=== PATIENT | female | born 1950 | race Caucasian/White ===

== ENCOUNTER → 2018-01-01 08:26 | Outpatient (CLI) | payer BC, SELFPAY ==
[2018-01-01 10:42] LABS: Anion Gap 7 (5-15); BUN 15 mg/dL (7-18); BUN/Creat Ratio 15.5 RATIO (10-20); Chloride 106 mmol/L (98-107); Creatinine, Serum 0.96 mg/dL (0.55-1.02); EST Glomerular Filtration Rate 61 mL/min (>60); Est Glom Filt Rate - Afr Amer 74 mL/min (>60); Glucose 152 mg/dL (74-106); Potassium 4.3 mmol/L (3.5-5.1); Sodium Level 141 mmol/L (136-145); Uric Acid 9.3 mg/dL (2.6-6.0)
== END ==
PROVIDERS: Family Provider Internal Medicine; PCP Internal Medicine; Visit Provider Internal Medicine
DX: E79.0 Hyperuricemia without signs of inflammatory arthritis and tophaceous disease (principal); I12.9 Hypertensive chronic kidney disease with stage 1 through stage 4 chronic kidney disease, or unspecified chronic kidney disease; N18.9 Chronic kidney disease, unspecified; E78.00 Pure hypercholesterolemia, unspecified
CPT/HCPCS: 36415; 80048; 84550

== ENCOUNTER → 2018-04-09 07:32 | Outpatient (CLI) | payer BC, SELFPAY ==
[2018-04-09 10:13] LABS: Absolute Lymphocyte Count 2.52 X10^3/ul (0.83-4.51); Absolute Neutrophil Count 2.5 X10^3/uL (2.0-7.7); Basophil# 0.05 X10^3/uL; Basophil% 0.8 % (0-1); Eosinophil# 0.49 X10^3/uL; Eosinophils% 7.9 % (0-5); Hematocrit 37.3 % (37-47); Hemoglobin 12.4 g/dl (12.0-15.0); Lymphocyte # 2.52 X10^3/ul (4.0); Lymphocyte % 40.5 % (19-41); Mean Corp Hgb Conc 33.2 g/gl (32-36); Mean Corpuscular Hgb 30.7 pg (27.0-32.0); Mean Corpuscular Volume 92.3 fL (81-99); Monocyte# 0.69 X10^3/uL; Monocyte% 11.1 % (0-10); Neutrophil # 2.45 X10^3/uL (2.7-7.7); Neutrophil % 39.4 % (47-70); Platelet Count 280 K/mm3 (150-450); RBC Distribution Width CV 13.2 % (11.6-14.6); RBC Distribution Width SD 43.4 fl (35.1-43.9); Red Blood Count 4.04 M/mm3 (4.2-5.4); White Blood Count 6.2 K/mm3 (4.4-11.0)
[2018-04-09 10:21] LABS: POSITIVE COUNT NO; POSITIVE DIFFERENTIAL NO; POSITIVE MORPHOLOGY NO
[2018-04-09 10:31] LABS: ALB/GLOB Ratio 1.2 RATIO (0.9-2.4); AST(SGOT) 22 U/L (15-37); Alanine Aminotransfer ALT/SGPT 28 U/L (13-56); Albumin, Serum 3.9 g/dL (3.2-5.0); Alkaline Phosphatase 72 U/L (45-117); Anion Gap 11 (5-15); BUN 21 mg/dL (7-18); BUN/Creat Ratio 18.9 RATIO (10-20); Calcium,Total 9.1 mg/dL (8.5-10.1); Chloride 104 mmol/L (98-107); Creatinine, Serum 1.11 mg/dL (0.55-1.02); EST Glomerular Filtration Rate 52 mL/min (>60); Est Glom Filt Rate - Afr Amer 63 mL/min (>60); Globulin 3.3 g/dL (2.2-4.2); Glucose 130 mg/dL (74-106); Potassium 4.4 mmol/L (3.5-5.1); Protein, Total 7.2 g/dL (6.4-8.2); Sodium Level 143 mmol/L (136-145); Uric Acid 9.8 mg/dL (2.6-6.0)
[2018-04-12 12:07] LABS: CHOLESTEROL TOTAL 186 mg/dL (100-199); HDL-C 47 mg/dL (>39); HDL-P TOTAL 31.7 umol/L (>=30.5); SMALL LDL-P 741 nmol/L (<=527); TRIGLYCERIDES 292 mg/dL (0-149)
[2018-04-12 16:23] LABS: LDL SIZE 20.3 nm (>20.5); LDL-C 81 mg/dL (0-99); LDL-P 1279 nmol/L (<1000); LP-IR SCORE ** 77 (<=45)
== END ==
PROVIDERS: Family Provider Internal Medicine; PCP Internal Medicine; Visit Provider Internal Medicine
DX: I12.9 Hypertensive chronic kidney disease with stage 1 through stage 4 chronic kidney disease, or unspecified chronic kidney disease (principal); N18.9 Chronic kidney disease, unspecified; E78.00 Pure hypercholesterolemia, unspecified; E79.0 Hyperuricemia without signs of inflammatory arthritis and tophaceous disease
CPT/HCPCS: 36415; 80053; 80061; 83695; 83704; 84550; 85025

== ENCOUNTER → 2018-07-09 12:20 | Outpatient (CLI) | payer BC, SELFPAY ==
--- NOTE | 2018-07-09 12:22 | BI_ITS ---
MAMMOGRAPHY - BILATERAL SCREENING REASON FOR EXAM: Female, 68 years old. Routine annual screening examination. PERTINENT HISTORY: Non-contributory. TECHNIQUE: Digital bilateral breast jami (3D mammographic acquisition) in the CC and MLO projections. 2-D mediolateral oblique (MLO) and craniocaudad (CC) views of both breasts were obtained. CAD: Full Field Digital Mammography with Computer Added Detection was performed. COMPARISON: Comparison is made with prior study dated July 07, 2017 and June 23, 2016. FINDINGS: Breast Composition: There are scattered areas of fibroglandular density. There are no dominant masses or suspicious calcifications. Stable benign-appearing bilateral axillary lymph nodes. No other significant abnormalities are identified. There has been no significant change since the prior study. BI/SCREENING MAMM (CAD), BILAT IMPRESSION: Stable bilateral screening mammogram. Yearly follow-up mammogram recommended. (A) ASSESSMENT CATEGORY: BIRADS Category 2: Benign. A letter regarding these results will be sent to the patient by the facility within 30 days. Approximately 10% of breast cancers are not detected by mammography. A normal mammogram should not delay biopsy of a clinically suspicious abnormality. [id number] Electronically Signed: Landen Sepulveda MD at 13:55 EDT Tel [phone], Service support ,
== END ==
PROVIDERS: Family Provider Internal Medicine; PCP Internal Medicine; Referring Provider Internal Medicine; Visit Provider Internal Medicine
DX: Z12.31 Encounter for screening mammogram for malignant neoplasm of breast (principal)
CPT/HCPCS: 77063; 77067

== ENCOUNTER → 2019-04-11 | Outpatient (CLI) | payer BC, SELFPAY ==
[2019-03-25 14:48] VITALS: BMI 42.1
--- NOTE | 2019-04-11 12:29 | ECHOD_ITS ---
Reason For Study: Murmur Procedure This was a 2D Doppler, Color Flow transthoracic echocardiogram. The exam was of adequate technical quality. Exam performed in department. Left Ventricle Normal LV size. Mild concentric left ventricular hypertrophy. Left ventricular systolic function is normal. The estimated ejection fraction is 60 %. Post operative septal motion. There is evidence of diastolic dysfunction. No regional wall motion abnormalities noted. Right Ventricle Normal RV size. Normal systolic function. Atria The left atrium is moderately enlarged. Normal right atrium. No doppler evidence for ASD. Mitral Valve There is mild mitral annular calcification. Extension of the mitral annular calcification onto the posterior mitral valve leaflet. Trivial mitral valve insufficiency. Tricuspid Valve Normal tricuspid valve. Mild tricuspid valve insufficiency. Right ventricular systolic pressure estimated to be 27 mmHg. Aortic Valve Trisinus/trileaflet aortic valve. Mild focal aortic valve calcification. Pulmonic Valve The pulmonic valve is not well visualized. Great Vessels Normal sized aortic root. Pericardium/Pleural No pericardial effusion. MMode/2D Measurements & Calculations LVIDd: 4.5 cm IVSd: 1.5 cm LVOT diam: 2.0 cm LVIDs: 2.4 cm LVPWd: 1.3 cm LVOT area: 3.1 cm2 FS: 47.5 % LA dimension: 4.7 cm LAV(MOD-bp): 71.0 ml LA A4 area: 25.1 cm2 LAV(MOD-bp) Indexed: 36.2 ml/m2 LAV(MOD-sp2): 54.1 ml LAV(MOD-sp4): 92.5 ml RA A4 area: 17.2 cm2 Time Measurements MV dec time: 0.23 sec Doppler Measurements & Calculations MV E max ba: 90.0 cm/sec Lat Peak E' Ba: 8.8 cm/sec Med Peak E' Ba: 4.9 cm/sec MV A max ba: 110.7 cm/sec E/E' lat: 10.2 E/E' med: 18.4 MV E/A: 0.81 MV V2 max: 127.1 cm/sec MV P1/2t max ba: 98.2 cm/sec Ao V2 max: 240.8 cm/sec MV max P.5 mmHg MV P1/2t: 74.4 msec Ao max P.2 mmHg MV V2 mean: 67.6 cm/sec MV dec slope: 386.7 cm/sec2 Ao V2 mean: 151.0 cm/sec MV mean P.1 mmHg Ao mean P.5 mmHg MV V2 VTI: 34.7 cm MVA(P1/2t): 3.0 cm2 Ao V2 VTI: 52.4 cm MVA(VTI): 2.3 cm2 JORGE(I,D): 1.5 cm2 JORGE(V,D): 1.4 cm2 LV V1 max: 112.2 cm/sec SV(LVOT): 80.7 ml PA V2 max: 99.2 cm/sec LV V1 max P.0 mmHg LV V1 mean P.5 mmHg LV V1 mean: 73.4 cm/sec LV V1 VTI: 26.2 cm TR max ba: 247.0 cm/sec TR max P.4 mmHg Interpretation Summary Left ventricular systolic function is normal. The estimated ejection fraction is 60 %. Post operative septal motion. Mild concentric left ventricular hypertrophy. The left atrium is moderately enlarged. There is mild mitral annular calcification. Extension of the mitral annular calcification onto the posterior mitral valve leaflet. Trivial mitral valve insufficiency. Mild tricuspid valve insufficiency. Mild focal aortic valve calcification. Right ventricular systolic pressure estimated to be 27 mmHg. There is evidence of diastolic dysfunction. Ordering Physician: Juan Pierre Referring Physician: Fiona Ivan M.D. Performed By: Suleman Barclay RCS
== END | disposition home or self-care (01) ==
LOC: CVS 12:27
PROVIDERS: Family Provider Internal Medicine; PCP Internal Medicine; Referring Provider Internal Medicine Cardiovascular Disease; Visit Provider Internal Medicine Cardiovascular Disease
DX: I25.10 Atherosclerotic heart disease of native coronary artery without angina pectoris (principal); Z98.61 Coronary angioplasty status; Z95.1 Presence of aortocoronary bypass graft; E78.5 Hyperlipidemia, unspecified; I10 Essential (primary) hypertension; I35.9 Nonrheumatic aortic valve disorder, unspecified; R01.1 Cardiac murmur, unspecified
CPT/HCPCS: 93306

== ENCOUNTER → 2019-07-11 14:18 | Outpatient (CLI) | payer BC, SELFPAY ==
[2019-03-25 14:48] VITALS: BMI 42.1
--- NOTE | 2019-07-11 14:20 | BI_ITS ---
MAMMOGRAPHY - BILATERAL SCREENING REASON FOR EXAM: Female, 69 years old. Routine annual screening examination. PERTINENT HISTORY: Non-contributory. TECHNIQUE: Digital bilateral breast aquiles (3D mammographic acquisition) in the CC and MLO projections. 2-D mediolateral oblique (MLO) and craniocaudad (CC) views of both breasts were obtained. CAD: Full Field Digital Mammography with Computer Added Detection was performed. COMPARISON: Comparison is made with prior examination dated July 09, 2018 and July 07, 2017. FINDINGS: Breast Composition: There are scattered areas of fibroglandular density. There is a 1.1 cm x 1.3 cm well-defined nodule in the mid deep portion of the right breast. Correlation with ultrasound is recommended. Stable appearance of the benign-appearing bilateral axillary lymph nodes. No other significant abnormalities are identified. BI/SCREEN MAMM (CAD) W/AQUILES BILAT IMPRESSION: Well-defined nodular density in the right breast as described. Correlation with ultrasound is recommended. ASSESSMENT CATEGORY: BIRADS Category 0: Incomplete. Need additional imaging evaluation. A letter regarding these results will be sent to the patient by the facility within 30 days. Approximately 10% of breast cancers are not detected by mammography. A normal mammogram should not delay biopsy of a clinically suspicious abnormality. [id number] Electronically Signed: Landen Sepulveda, at 15:49 EDT , Service support ,
--- NOTE | 2019-07-11 14:28 | BD_ITS ---
STUDY: DUAL ENERGY X-RAY ABSORPTIOMETRY / DXA REASON FOR EXAM: Female, 69 years old. The patient is postmenopausal. Loss of height. TECHNIQUE: Bone Mineral Density (BMD) measurements of lumbar spine and bilateral hips were obtained. COMPARISON: Comparison is made with prior examination dated April 04, 2017. FINDINGS: Lumbar Spine (L1-L4): g/cm2 (1.154) / T-score (-0.1) / Z-score (1.6) Findings are suggestive of normal bone density with a low fracture risk. Left Femur Total: g/cm2 (1.033) / T-score (0.2) / Z-score (1.7) Left Femoral Neck: g/cm2 (0.785) / T-score (-1.8) / Z-score (-0.1) Right Femur Total: g/cm2 (1.037) / T-score (0.2) / Z-score (1.8) Right Femoral Neck: g/cm2 (0.798) / T-score (-1.7) / Z-score (0.0) The T-Scores on the most recent prior examination were: Lumbar Spine (L1-L4): There has been worsening of bone density since the previous examination. Left Femur Total: which represents a worsening of 1.8%. Right Femur Total: which represents no significant change. . BD/Dexa Bone Density Study IMPRESSION: The patient is considered osteopenic as outlined below according to World Nish Organization (WHO) criteria with a moderate fracture risk. There has been worsening of bone density since the previous examination. Reference Information: The T-score is the number of standard deviations above or below the standard which is normal for young adults at their peak bone mineral density. The World Health Organization (WHO) interprets the T-scores as follows: Above -1 Normal bone density Between -1 and -2.5 Osteopenia Equal to / or below -2.5 Osteoporosis As a practical clinical guideline, osteopenia may be graded as follows: Mild -1 through -1.5 Moderate -1.6 through -2.0 Severe -2.1 through -2.4 The Z-score is the number of standard deviations above or below age-matched controls. A Z-score of less than -1.5 would be considered abnormal. References: 1. NIH Osteoporosis and Related Bone Diseases http://www.osteo.org 2. International Society for Clinical Densitometry http://www.iscd.org 3. National Osteoporosis Foundation http://www.nof.org Electronically Signed: Landen Sepulveda, at 12:52 EDT , Service support ,
== END ==
PROVIDERS: Family Provider Internal Medicine; PCP Internal Medicine; Referring Provider Internal Medicine; Visit Provider Internal Medicine
DX: Z12.31 Encounter for screening mammogram for malignant neoplasm of breast (principal); M81.0 Age-related osteoporosis without current pathological fracture
CPT/HCPCS: 77063; 77067; 77080

== ENCOUNTER → 2019-07-15 10:47 | Outpatient (CLI) | payer BC, SELFPAY ==
[2019-03-25 14:48] VITALS: BMI 42.1
--- NOTE | 2019-07-15 10:49 | US_ITS ---
STUDY: ULTRASOUND BREAST - RIGHT REASON FOR EXAM: Female, 69 years old. Abnormal screening mammogram. TECHNIQUE: Axial and longitudinal images of the RIGHT breast were performed with a high resolution ultrasound transducer. COMPARISON: Comparison is made with prior mammogram dated July 11, 2019. FINDINGS: RIGHT Breast: The mammographic abnormality corresponds to a 1.2 cm x 0.7 cm x 0.6 cm septated cyst at the 5:00 position of the breast at 2 cm from the nipple. US/Breast Limited Unilateral IMPRESSION: The mammographic abnormality corresponds to a 1.2 cm x 0.7 cm x 0.6 cm septated cyst. ASSESSMENT CATEGORY: BIRADS Category 2: Benign. A letter regarding these results will be sent to the patient by the facility within 30 days. Electronically Signed: Landen Sepulveda, at 10:31 EST , Service support ,
== END ==
PROVIDERS: Family Provider Internal Medicine; PCP Internal Medicine; Referring Provider Internal Medicine; Visit Provider Internal Medicine
DX: N63.10 Unspecified lump in the right breast, unspecified quadrant (principal)
CPT/HCPCS: 76642

== ENCOUNTER → 2020-07-22 | Outpatient (CLI) | payer BC, SELFPAY ==
[2020-05-29 14:22] VITALS: BMI 41.3
--- NOTE | 2020-07-22 15:32 | BI_ITS ---
MAMMOGRAPHY - BILATERAL SCREENING REASON FOR EXAM: Female, 70 years old. Routine annual screening examination. PERTINENT HISTORY: Non-contributory. TECHNIQUE: Digital bilateral breast aquiles (3D mammographic acquisition) in the CC and MLO projections. 2-D mediolateral oblique (MLO) and craniocaudad (CC) views of both breasts were obtained. CAD: Full Field Digital Mammography with Computer Added Detection was performed. COMPARISON: Comparison is made with prior study dated 07/11/2019 and 07/09/2018. FINDINGS: Breast Composition: There are scattered areas of fibroglandular density. There are no dominant masses or suspicious calcifications. Stable 1.2 cm x 0.7 cm nodular density in the mid deep portion of the right breast. This was demonstrated to be a small cyst on prior sonogram. No other significant abnormalities are identified. There has been no significant change since the prior study. BI/SCREEN MAMM (CAD) W/AQUILES BILAT IMPRESSION: Stable bilateral screening mammogram. Yearly follow-up mammogram recommended. (A) ASSESSMENT CATEGORY: BIRADS Category 2: Benign. A letter regarding these results will be sent to the patient by the facility within 30 days. Approximately 10% of breast cancers are not detected by mammography. A normal mammogram should not delay biopsy of a clinically suspicious abnormality. [id number] Electronically Signed: Landen Sepulveda, at 8:22 EST , Service support ,
== END | disposition home or self-care (01) ==
LOC: OPBI 15:31
PROVIDERS: PCP Internal Medicine; Referring Provider Internal Medicine; Visit Provider Internal Medicine
DX: Z12.31 Encounter for screening mammogram for malignant neoplasm of breast (principal)
CPT/HCPCS: 77063; 77067

== ENCOUNTER → 2021-07-29 10:33 | Outpatient (CLI) | payer BC, SELFPAY ==
--- NOTE | 2021-07-29 10:36 | BI_ITS ---
MAMMOGRAPHY - BILATERAL SCREENING REASON FOR EXAM: Female, 71 years old. Routine annual screening examination. PERTINENT HISTORY: Non-contributory. TECHNIQUE: Digital bilateral breast aquiles (3D mammographic acquisition) in the CC and MLO projections. 2-D mediolateral oblique (MLO) and craniocaudad (CC) views of both breasts were obtained. CAD: Full Field Digital Mammography with Computer Added Detection was performed. COMPARISON: Comparison is made with prior study dated 07/22/2020 and 07/11/2019. FINDINGS: Breast Composition: There are scattered areas of fibroglandular density. There are no dominant masses or suspicious calcifications. Stable 1.2 cm x 0.7 cm nodular density in the mid deep portion of the right breast. This was demonstrated to be a small cyst on prior sonogram. Stable scattered bilateral calcifications. Stable bilateral benign appearing axillary lymph liz. No other significant abnormalities are identified. There has been no significant change since the prior study. BI/SCRN MAMM (CAD)W/AQUILES BILAT IMPRESSION: Stable bilateral screening mammogram. Yearly follow-up mammogram recommended. (A) ASSESSMENT CATEGORY: BIRADS Category 2: Benign. A letter regarding these results will be sent to the patient by the facility within 30 days. Approximately 10% of breast cancers are not detected by mammography. A normal mammogram should not delay biopsy of a clinically suspicious abnormality. [id number] Electronically Signed: Landen Sepulveda MD at 13:22 EST , Service support ,
--- NOTE | 2021-07-29 11:04 | BD_ITS ---
STUDY: DUAL ENERGY X-RAY ABSORPTIOMETRY / DXA REASON FOR EXAM: Female, 71 years old. 733.90OsteopeniaBONE DENSITY REASON FOR EXAM TECHNIQUE: Bone Mineral Density (BMD) measurements of lumbar spine and bilateral hips were obtained. COMPARISON: Comparison is made with prior study 07/11/2019. FINDINGS: Lumbar Spine (L1-L4): g/cm2 (1.122) / T-score (0.7) / Z-score (3.0) Findings are suggestive of normal bone density with a low fracture risk. Left Femur Total: g/cm2 (0.983) / T-score (0.3) / Z-score (2.0) Left Femoral Neck: g/cm2 (0.702) / T-score (-1.3) / Z-score (0.7) Right Femur Total: g/cm2 (0.984) / T-score (0.3) / Z-score (2.0) Right Femoral Neck: g/cm2 (0.645) / T-score (-1.8) / Z-score (0.2) The T-Scores on the most recent prior examination were: Lumbar Spine (L1-L4): There has been improvement of bone density since the previous examination. Left Femur Total: which represents an improvement of 1.8%. Right Femur Total: which represents an improvement of 1.5%. BD/Dexa Bone Density Study IMPRESSION: The patient is considered osteopenic as outlined below according to World Nish Organization (WHO) criteria with a moderate fracture risk. There has been improvement of bone density since the previous examination. Reference Information: The T-score is the number of standard deviations above or below the standard which is normal for young adults at their peak bone mineral density. The World Health Organization (WHO) interprets the T-scores as follows: Above -1 Normal bone density Between -1 and -2.5 Osteopenia Equal to / or below -2.5 Osteoporosis As a practical clinical guideline, osteopenia may be graded as follows: Mild -1 through -1.5 Moderate -1.6 through -2.0 Severe -2.1 through -2.4 The Z-score is the number of standard deviations above or below age-matched controls. A Z-score of less than -1.5 would be considered abnormal. References: 1. NIH Osteoporosis and Related Bone Diseases www osteo.org 2. International Society for Clinical Densitometry www iscd.org 3. National Osteoporosis Foundation www nof.org Electronically Signed: Landen Sepulveda MD at 14:23 EST , Service support ,
== END ==
PROVIDERS: PCP Internal Medicine; Referring Provider Internal Medicine; Visit Provider Internal Medicine
DX: Z12.31 Encounter for screening mammogram for malignant neoplasm of breast (principal); M85.80 Other specified disorders of bone density and structure, unspecified site
CPT/HCPCS: 77063; 77067; 77080

== ENCOUNTER 2021-10-13 11:16 | Outpatient (CLI) | payer BC, SELFPAY ==
--- NOTE | 2021-10-13 11:19 | US_ITS ---
STUDY: ULTRASOUND OF THE FEMALE PELVIS - COMPLETE REASON FOR EXAM: Female, 71 years old. 2 week history of right lower quadrant pain. LMP: Patient is postmenopausal. TECHNIQUE: Transabdominal and Transvaginal TECHNICAL QUALITY: Adequate. COMPARISON: None. FINDINGS: The uterus is retroflexed and is in a midline position. The uterus measures 7.7 cm x 4.9 cm x 2.9 cm. Normal uterine cervix. The endometrium is thickened and measures 8 mm in thickness, and is fluid distended. I suspect a 3 mm polyp in the cervical region of the endometrium. There is a 2.47 x 1.8 cm x 1.8 cm uterine fibroid. I.U.D. - The patient does not have an I.U.D. The right ovary is visualized. The right ovary measures 2.3 cm x 1.7 cm x 0.9 cm. There is no right ovarian cyst or ovarian mass. There is no visualized right adnexal mass or complex lesion. There is normal arterial and normal venous vascularity. The left ovary is visualized. The left ovary measures 2.2 cm x 2 cm x 1.2 cm. There is no left ovarian cyst or ovarian mass. There is no visualized left adnexal mass or complex lesion. There is normal arterial and normal venous vascularity. There is no fluid in the cul-de-sac. The pre void volume of the bladder was 677 ml. US/Pelvic (Non ) IMPRESSION: 2.4 cm x 1.8 cm x 1.8 cm uterine fibroid. Fluid distended endometrium with findings suggestive of a 3 mm endometrial polyp. Electronically Signed: Landen Sepulveda MD at 14:52 EST ,
--- NOTE | 2021-10-13 11:20 | US_ITS ---
STUDY: ULTRASOUND OF THE FEMALE PELVIS - COMPLETE REASON FOR EXAM: Female, 71 years old. 2 week history of right lower quadrant pain. LMP: Patient is postmenopausal. TECHNIQUE: Transabdominal and Transvaginal TECHNICAL QUALITY: Adequate. COMPARISON: None. FINDINGS: The uterus is retroflexed and is in a midline position. The uterus measures 7.7 cm x 4.9 cm x 2.9 cm. Normal uterine cervix. The endometrium is thickened and measures 8 mm in thickness, and is fluid distended. I suspect a 3 mm polyp in the cervical region of the endometrium. There is a 2.47 x 1.8 cm x 1.8 cm uterine fibroid. I.U.D. - The patient does not have an I.U.D. The right ovary is visualized. The right ovary measures 2.3 cm x 1.7 cm x 0.9 cm. There is no right ovarian cyst or ovarian mass. There is no visualized right adnexal mass or complex lesion. There is normal arterial and normal venous vascularity. The left ovary is visualized. The left ovary measures 2.2 cm x 2 cm x 1.2 cm. There is no left ovarian cyst or ovarian mass. There is no visualized left adnexal mass or complex lesion. There is normal arterial and normal venous vascularity. There is no fluid in the cul-de-sac. The pre void volume of the bladder was 677 ml. US/Transvaginal Non- IMPRESSION: 2.4 cm x 1.8 cm x 1.8 cm uterine fibroid. Fluid distended endometrium with findings suggestive of a 3 mm endometrial polyp. Electronically Signed: Landen Sepulveda MD at 14:52 EST ,
== END 2021-10-13 23:59 | disposition short-term general hospital (02) ==
PROVIDERS: PCP Internal Medicine; Referring Provider Internal Medicine; Visit Provider Internal Medicine
DX: R10.31 Right lower quadrant pain (principal); Z78.0 Asymptomatic menopausal state
CPT/HCPCS: 76830; 76856; 93976

== ENCOUNTER 2021-10-21 14:26 | Outpatient (CLI) | payer BC, SELFPAY ==
[2021-10-21 14:31] LABS: Bacteria 0 SEEN /hpf (None Seen); Mucous, Urine 0 SEEN /hpf (<or=2+); Red Blood Cells-Urine 0 SEEN /hpf (0-5); Squamous Epithelial Cells - UA 0 SEEN /hpf (5-10); White Blood Cells 0 SEEN /hpf (0-5)
[2021-10-21 17:40] LABS: Absolute Lymphocyte Count 3.25 X10^3/uL (0.83-4.51); Absolute Neutrophil Count 3.3 X10^3/uL (2.0-7.7); Basophil% 1.2 % (0-1); Eosinophil# 0.54 X10^3/uL; Eosinophils% 6.5 % (0-5); Hematocrit 41.1 % (37-47); Hemoglobin 13.5 g/dL (12.0-15.0); Lymphocyte # 3.25 X10^3/ul (0.83-4.51); Lymphocyte % 39.2 % (19-41); Mean Corp Hgb Conc 32.8 g/dL (32-36); Mean Corpuscular Hgb 31.8 pg (27.0-32.0); Mean Corpuscular Volume 96.9 fL (81-99); Mean Platelet Vol. 9.6 fl (6.2-12.0); Monocyte# 1.08 X10^3/uL; NRBC Flagged by Analyzer 0 % (0-5); Neutrophil # 3.27 X10^3/uL (2.7-7.7); Neutrophil % 39.5 % (47-70); Platelet Count 288 K/mm3 (150-450); RBC Distribution Width CV 13.2 % (11.6-14.6); RBC Distribution Width SD 47.3 fl (35.1-43.9); Red Blood Count 4.24 M/mm3 (4.2-5.4); White Blood Count 8.3 K/mm3 (4.4-11.0)
[2021-10-21 17:43] LABS: Color, Urine Yellow (Yellow); Glucose, Dipstick 1000 mg/dl (Normal); Ketone-Dipstick Negative (Negative); Leukocyte Esterase-Dipstick Negative /ul (Negative); Nitrite-Dipstick Negative (Negative); Occult Blood-Urine Negative /ul (Negative); Protein-Dipstick 15 mg/dl (Negative); Urine Bilirubin Dipstick Negative (Negative); Urine Clarity Clear (Clear); Urine Urobilinogen Normal (Normal); Urine pH 6.5 (5.0 - 8.0)
[2021-10-21 17:55] LABS: ALB/GLOB Ratio 1.3 RATIO (0.9-2.4); AST(SGOT) 21 U/L (15-37); Alanine Aminotransfer ALT/SGPT 32 U/L (13-56); Albumin, Serum 4.3 g/dL (3.2-5.0); Alkaline Phosphatase 69 U/L (45-117); Anion Gap 7 (5-15); BUN 24 mg/dL (7-18); BUN/Creat Ratio 22.2 RATIO (10-20); Calcium,Total 9.8 mg/dL (8.5-10.1); Chloride 105 mmol/L (98-107); Creatinine, Serum 1.08 mg/dL (0.55-1.02); EST Glomerular Filtration Rate 53 mL/min (>60); Est Glom Filt Rate - Afr Amer 64 mL/min (>60); Globulin 3.3 g/dL (2.2-4.2); Glucose 143 mg/dL (74-106); Potassium 4.2 mmol/L (3.5-5.1); Protein, Total 7.6 g/dL (6.4-8.2); Sodium Level 139 mmol/L (136-145)
== END 2021-10-21 23:59 | disposition home or self-care (01) ==
LOC: MTLAB 14:27
PROVIDERS: PCP Internal Medicine; Referring Provider Internal Medicine; Visit Provider Internal Medicine
DX: R10.31 Right lower quadrant pain (principal)
CPT/HCPCS: 36415; 80053; 81001; 85025

== ENCOUNTER 2021-10-26 17:27 | Outpatient (CLI) | payer BC, SELFPAY ==
--- NOTE | 2021-10-26 15:30 | EMB_PTH ---
PATIENT: ANNABELLE PEREZ LOC: [facility] U#:[id number] AGE/SX: 71/F ROOM: RE10/26/[address]: Dr. Joanna Moreno DO : 1950 BED: DIS: 10/26/2021 SPEC #: [id number] RECD: 10/26/21 16:12 STATUS: LAURA SANTHOSH #: [id number] LEWIS: 10/26/21 15:[address]: Joanna Moreno DEPT: SURGICAL PATHOLOGY RECD BY: Charlotte Stroud ENTERED: 10/27/21 11:54 SP TYPE: ENDOM BX/C OTHR DR: Dr. Fiona Ivan MD Tissues: Endometrium, NOS Procedures: Surgery Specimen Level IV HEADER OPERATION: Endometrial biopsy PRE-OP DIAGNOSIS: Uterine mass TISSUE SUBMITTED: Endometrial lining MICROSCOPIC DIAGNOSIS Endometrial biopsy: Scant strips of benign endometrial epithelium, consistent with atrophic endometrium. Scant fragments of benign ecto- and endocervical epithelium and mucous. See comment. SJ:marck 10/28/2021 COMMENT The specimen predominantly consists of mucoid tissue. Clinical correlation and appropriate follow up are necessary. MICROSCOPIC DESCRIPTION Slides are reviewed. GROSS DESCRIPTION Received is one container labeled with the patient's name and not further designated. The specimen consists of light arizmendi mucoid material aggregating to 2 x 2 x 0.2 cm. The specimen is totally submitted in one cassette. / AM:marck 10/27/2021 TC:4 CPT: 21979
== END 2021-10-26 23:59 | disposition home or self-care (01) ==
PROVIDERS: PCP Internal Medicine; Visit Provider Obstetrics & Gynecology
DX: N85.9 Noninflammatory disorder of uterus, unspecified (principal)
CPT/HCPCS: 88305

== ENCOUNTER → 2022-03-25 | Outpatient (CLI) | payer BC, SELFPAY ==
--- NOTE | 2022-03-25 09:46 | ECHOD_ITS ---
Reason For Study: CAD, Murmur Procedure This was a 2D Doppler, Color Flow transthoracic echocardiogram. The exam was of adequate technical quality. Exam performed in department. Left Ventricle Normal LV size. Mild concentric left ventricular hypertrophy. Left ventricular systolic function is normal. The estimated ejection fraction is 60 %. Post operative septal motion. Diastolic function is indeterminate. Right Ventricle Normal RV size. Normal systolic function. Atria The left atrium is mildly enlarged. Normal right atrium. No doppler evidence for ASD. Mitral Valve There is mild mitral annular calcification. Extension of the mitral annular calcification onto the base of the posterior mitral valve leaflet. Trivial mitral valve insufficiency. Tricuspid Valve Normal tricuspid valve. Mild tricuspid valve insufficiency. Right ventricular systolic pressure estimated to be 31 mmHg. Aortic Valve Trisinus/trileaflet aortic valve. Mild diffuse aortic valve thickening. Mild diffuse aortic valve calcification. Mild aortic stenosis. Pulmonic Valve The pulmonic valve is not well visualized. Trivial pulmonic valve insufficiency. Great Vessels Normal sized aortic root. Pericardium/Pleural No pericardial effusion. MMode/2D Measurements & Calculations LVIDd: 4.6 cm IVSd: 1.4 cm LVOT diam: 2.1 cm LVIDs: 2.3 cm LVPWd: 1.3 cm LVOT area: 3.4 cm2 RVDd: 2.6 cm FS: 51.3 % Ao root diam: 3.3 cm LAV(MOD-bp): 58.9 ml LVAd ap4: 25.4 cm2 LAV(MOD-bp) Indexed: 30.1 ml/m2 LVLd ap4: 7.4 cm LAV(MOD-sp2): 52.4 ml EDV(MOD-sp4): 75.4 ml LAV(MOD-sp4): 64.7 ml EDV(sp4-el): 74.0 ml LVAs ap4: 14.2 cm2 LVLs ap4: 6.4 cm ESV(MOD-sp4): 27.2 ml ESV(sp4-el): 27.0 ml EF(MOD-sp4): 64.0 % EF(sp4-el): 63.5 % LVAd ap2: 24.9 cm2 SV(MOD-sp4): 48.2 ml SV(MOD-sp2): 45.5 ml LVLd ap2: 7.6 cm EDV(MOD-sp2): 71.0 ml EDV(sp2-el): 68.9 ml LVAs ap2: 14.3 cm2 LVLs ap2: 7.1 cm ESV(MOD-sp2): 25.4 ml ESV(sp2-el): 24.4 ml EF(MOD-sp2): 64.1 % SV(sp4-el): 47.0 ml LA dimension(2D): 4.7 cm LA A4 area: 21.1 cm2 RA A4 area: 14.3 cm2 Time Measurements MV dec time: 0.23 sec Doppler Measurements & Calculations MV E max ba: 105.0 cm/sec Lat Peak E' Ba: 7.9 cm/sec Med Peak E' Ba: 5.3 cm/sec MV A max ba: 99.6 cm/sec E/E' lat: 13.2 E/E' med: 19.8 MV E/A: 1.1 Ao V2 max: 252.4 cm/sec LV V1 max: 126.7 cm/sec MV dec slope: 466.8 cm/sec2 Ao max P.5 mmHg LV V1 max P.4 mmHg Ao V2 mean: 171.6 cm/sec LV V1 mean P.1 mmHg Ao mean P.3 mmHg LV V1 mean: 81.1 cm/sec Ao V2 VTI: 62.6 cm LV V1 VTI: 29.7 cm JORGE(I,D): 1.6 cm2 JORGE(V,D): 1.7 cm2 SV(LVOT): 102.1 ml PA V2 max: 116.4 cm/sec TR max ba: 265.0 cm/sec TR max P.2 mmHg ECHO/Echo Complete Interpretation Summary Left ventricular systolic function is normal. The estimated ejection fraction is 60 %. Post operative septal motion. Mild concentric left ventricular hypertrophy. The left atrium is mildly enlarged. There is mild mitral annular calcification. Extension of the mitral annular calcification onto the base of the posterior mi tral valve leaflet. Trivial mitral valve insufficiency. Mild tricuspid valve insufficiency. Mild aortic stenosis. Trivial pulmonic valve insufficiency. Right ventricular systolic pressure estimated to be 31 mmHg. Diastolic function is indeterminate. Ordering Physician: Juan Pierre Referring Physician: Fiona Ivan M.D. Performed By: Wendy Oconnor [facility]
== END | disposition home or self-care (01) ==
PROVIDERS: PCP Internal Medicine; Referring Provider Internal Medicine Cardiovascular Disease; Visit Provider Internal Medicine Cardiovascular Disease
DX: I25.10 Atherosclerotic heart disease of native coronary artery without angina pectoris (principal); I10 Essential (primary) hypertension; E78.5 Hyperlipidemia, unspecified; Z95.1 Presence of aortocoronary bypass graft; Z95.5 Presence of coronary angioplasty implant and graft
CPT/HCPCS: 93306

== ENCOUNTER → 2022-07-05 | Outpatient (CLI) | payer BC, SELFPAY ==
--- NOTE | 2022-07-05 13:23 | US_ITS ---
STUDY: ULTRASOUND OF THE FEMALE PELVIS - COMPLETE REASON FOR EXAM: Female, 72 years old. POLYP TECHNIQUE: Endovaginal. Transvaginal US was obtained to better visualized the ovaries. COMPARISON: .11.02. FINDINGS: The uterus is anteverted and is in a midline position. The uterus measures 5.3 x 4.4 cm. Normal uterine cervix. The endometrium measures 8.5 mm in thickness, and is hyperechoic. There is no demonstrated endometrial mass. Fibroid visualized. This measures 20 x 18 mm. I.U.D. - The patient does not have an I.U.D. There is nonvisualization of the right ovary due to overlying bowel gas. The left ovary is visualized. The left ovary measures 1.6 x 1.3 cm. There is no left ovarian cyst or ovarian mass. There is no visualized left adnexal mass or complex lesion. There is normal arterial and normal venous vascularity. There is no fluid in the cul-de-sac. Urinary bladder volume is (in cc) 218. US/Pelvic (Non ) IMPRESSION: Fibroid uterus. There is endometrial thickening. This is abnormal for the patient''s age if she is postmenopausal. Direct visualization is recommended to exclude an underlying mass. Procedures identified polyp is no longer visualized. Electronically Signed: Anthony Spangler MD at 14:52 EDT ,
--- NOTE | 2022-07-05 13:44 | US_ITS ---
STUDY: ULTRASOUND OF THE FEMALE PELVIS - COMPLETE REASON FOR EXAM: Female, 72 years old. POLYP TECHNIQUE: Endovaginal. Transvaginal US was obtained to better visualized the ovaries. COMPARISON: 10.13.21. FINDINGS: The uterus is anteverted and is in a midline position. The uterus measures 5.3 x 4.4 cm. Normal uterine cervix. The endometrium measures 8.5 mm in thickness, and is hyperechoic. There is no demonstrated endometrial mass. Fibroid visualized. This measures 20 x 18 mm. I.U.D. - The patient does not have an I.U.D. There is nonvisualization of the right ovary due to overlying bowel gas. The left ovary is visualized. The left ovary measures 1.6 x 1.3 cm. There is no left ovarian cyst or ovarian mass. There is no visualized left adnexal mass or complex lesion. There is normal arterial and normal venous vascularity. There is no fluid in the cul-de-sac. Urinary bladder volume is (in cc) 218. US/Transvaginal Non- IMPRESSION: Fibroid uterus. There is endometrial thickening. This is abnormal for the patient''s age if she is postmenopausal. Direct visualization is recommended to exclude an underlying mass. Procedures identified polyp is no longer visualized. Electronically Signed: Anthony Spangler MD at 14:52 EDT ,
== END | disposition home or self-care (01) ==
LOC: US 13:21
PROVIDERS: PCP Internal Medicine; Referring Provider Internal Medicine; Visit Provider Internal Medicine
DX: N84.0 Polyp of corpus uteri (principal)
CPT/HCPCS: 76830; 76856

== ENCOUNTER → 2022-08-11 | Outpatient (CLI) | payer BC, SELFPAY ==
--- NOTE | 2022-08-11 13:48 | BI_ITS ---
MAMMOGRAPHY - BILATERAL SCREENING REASON FOR EXAM: Female, 72 years old. Routine annual screening examination. PERTINENT HISTORY: Non-contributory. TECHNIQUE: Digital bilateral breast aquiles (3D mammographic acquisition) in the CC and MLO projections. 2-D mediolateral oblique (MLO) and craniocaudad (CC) views of both breasts were obtained. CAD: Full Field Digital Mammography with Computer Added Detection was performed. COMPARISON: Comparison is made with prior study dated 07/29/2021 and 07/22/2020. FINDINGS: Breast Composition: There are scattered areas of fibroglandular density. There are no dominant masses or suspicious calcifications. Stable 1.2 cm x 0.7 cm well-defined nodule in the mid deep portion of the breast was demonstrated to be a small cyst on prior study. Stable small benign-appearing bilateral axillary nodes. Stable scattered bilateral calcifications. No other significant abnormalities are identified. There has been no significant change since the prior study. BI/SCRN MAMM (CAD)W/AQUILES BILAT IMPRESSION: Stable bilateral screening mammogram. Yearly follow-up mammogram recommended. (A) ASSESSMENT CATEGORY: BIRADS Category 2: Benign. A letter regarding these results will be sent to the patient by the facility within 30 days. Approximately 10% of breast cancers are not detected by mammography. A normal mammogram should not delay biopsy of a clinically suspicious abnormality. [id number] Electronically Signed: Landen Sepulveda MD at 15:23 EST ,
== END | disposition home or self-care (01) ==
LOC: OPBI 13:47
PROVIDERS: PCP Internal Medicine; Visit Provider Internal Medicine
DX: Z12.31 Encounter for screening mammogram for malignant neoplasm of breast (principal)
CPT/HCPCS: 77063; 77067

== ENCOUNTER → 2023-07-13 | Outpatient (CLI) | payer BC, SELFPAY ==
--- NOTE | 2023-07-13 08:06 | NEURO_ITS ---
NCS and/or EMG Patient Report Ordering Doctor: Fiona Ivan DATE OF SERVICE: 07/13/23 Clinical Summary: This is a 73 year female presenting with complaints of numbness and pain in the lower extremities. She has been having numbness in the medial region of the left calf. She also has been having sharp pains in both feet. This EMG/NCS was performed to evaluate for peripheral polyneuropathy and lumbosacral radiculopathies. Nerve Conduction Studies Summary: The right sural SNAP was absent. The left peroneal-EDB CMAP amplitude was diffusely reduced. The peroneal motor conduction velocity was reduced bilaterally. The left peroneal F-wave was absent. The tibial F-wave onset latency was prolonged bilaterally Needle Examination Summary: There was a higher proportion of motor unit action potentials with reduced recruitment, increased amplitude, increased duration, and polyphasia in the left S1 myotomes. Impression: There is electrodiagnostic evidence of the following - 1) Chronic, mild, left S1 radiculopathy 2) Lower distal motor conduction velocities can be seen in the setting of (although not completely diagnostic by themselves) an underlying mild, length- dependent, peripheral polyneuropathy Procedures Neurology CF Procedures [id number]: [id number] Nrv cndj test 7-8 studies (interp) (2)
== END | disposition home or self-care (01) ==
LOC: PSN 07:12
PROVIDERS: PCP Internal Medicine; Referring Provider Internal Medicine; Visit Provider Internal Medicine
DX: R20.0 Anesthesia of skin (principal)
CPT/HCPCS: 95886; 95910

== ENCOUNTER → 2023-09-12 | Outpatient (CLI) | payer BC, SELFPAY ==
--- NOTE | 2023-09-12 14:48 | BI_ITS ---
MAMMOGRAPHY - BILATERAL SCREENING REASON FOR EXAM: Female, 73 years old. Routine annual screening examination. PERTINENT HISTORY: Non-contributory. TECHNIQUE: Digital bilateral breast aquiles (3D mammographic acquisition) in the CC and MLO projections. 2-D mediolateral oblique (MLO) and craniocaudad (CC) views of both breasts were obtained. CAD: Full Field Digital Mammography with Computer Added Detection was performed. COMPARISON: Comparison is made with prior study dated August 11, 2022 and July 29, 2021. FINDINGS: Breast Composition: There are scattered areas of fibroglandular density. There are no dominant masses or suspicious calcifications. Stable 1.2 cm x 0.7 cm well-defined nodule in the mid deep portion of the right breast. This was demonstrated to be a cyst on prior sonogram. Stable scattered bilateral microcalcifications more prominent right side. No other significant abnormalities are identified. There has been no significant change since the prior study. BI/SCRN MAMM (CAD)W/AQUILES BILAT IMPRESSION: Stable bilateral screening mammogram. Yearly follow-up mammogram recommended. (A) ASSESSMENT CATEGORY: BIRADS Category 2: Benign. A letter regarding these results will be sent to the patient by the facility within 30 days. Approximately 10% of breast cancers are not detected by mammography. A normal mammogram should not delay biopsy of a clinically suspicious abnormality. [id number] Electronically Signed: Landen Sepulveda MD at 11:33 EST ,
--- NOTE | 2023-09-12 14:52 | BD_ITS ---
STUDY: DUAL ENERGY X-RAY ABSORPTIOMETRY / DXA REASON FOR EXAM: Female, 73 years old. [id number] TECHNIQUE: Bone Mineral Density (BMD) measurements of lumbar spine and bilateral hips were obtained. COMPARISON: Comparison is made with prior study dated July 29, 2021. FINDINGS: Lumbar Spine (L1-L4): g/cm2 (1.132) / T-score (0.8) / Z-score (3.2) Findings are suggestive of normal bone density with a low fracture risk. Left Femur Total: g/cm2 (1.009) / T-score (0.6) / Z-score (2.4) Left Femoral Neck: g/cm2 (0.660) / T-score (-1.7) / Z-score (0.4) Right Femur Total: g/cm2 (0.953) / T-score (0.1) / Z-score (1.9) Right Femoral Neck: g/cm2 (0.653) / T-score (-1.8) / Z-score (0.3) The T-Scores on the most recent prior examination were: Lumbar Spine (L1-L4): There has been improvement of bone density since the previous examination. Left Femur Total: which represents an improvement of 2.7%. Right Femur Total: which represents a worsening of 3.2%. BD/Dexa Bone Density Study IMPRESSION: The patient is considered osteopenic as outlined below according to World Nish Organization (WHO) criteria with a moderate fracture risk. There has been improvement of bone density since the previous examination. Reference Information: The T-score is the number of standard deviations above or below the standard which is normal for young adults at their peak bone mineral density. The World Health Organization (WHO) interprets the T-scores as follows: Above -1 Normal bone density Between -1 and -2.5 Osteopenia Equal to / or below -2.5 Osteoporosis As a practical clinical guideline, osteopenia may be graded as follows: Mild -1 through -1.5 Moderate -1.6 through -2.0 Severe -2.1 through -2.4 The Z-score is the number of standard deviations above or below age-matched controls. A Z-score of less than -1.5 would be considered abnormal. References: 1. NIH Osteoporosis and Related Bone Diseases www osteo.org 2. International Society for Clinical Densitometry www iscd.org 3. National Osteoporosis Foundation www nof.org Electronically Signed: Landen Sepulveda MD at 14:43 EST ,
== END | disposition home or self-care (01) ==
LOC: OPBD 14:46
PROVIDERS: PCP Internal Medicine; Referring Provider Internal Medicine; Visit Provider Internal Medicine
DX: Z12.31 Encounter for screening mammogram for malignant neoplasm of breast (principal); Z78.0 Asymptomatic menopausal state
CPT/HCPCS: 77063; 77067; 77080

== ENCOUNTER → 2023-09-22 | Outpatient (CLI) | payer BC, SELFPAY ==
--- NOTE | 2023-09-22 18:30 | STRESSREP_ITS ---
Stress Test Report Pharmacologic myocardial perfusion stress test. 73-year-old lady with a history of chest pain coronary artery disease Resting EKG demonstrates sinus rhythm with a rate of 65 bpm. Premature ventricular complexes noted resting blood pressure is 150/74 mmHg. 0.4 mg of regadenoson was infused per usual protocol followed by rapid intravenous saline flush injection. Continuous EKG monitoring was performed. The maximum heart rate was 81 bpm which was 55% of max impacted heart rate the maximum workload was 1 metabolic equivalent. At rest there were no ST or T wave changes noted to suggest ischemia and at peak infusion nonspecific ST changes were noted which did not meet the criteria for ischemia. No clinical angina is noted. The fi nal blood pressure was 154/68 mmHg. Myocardial perfusion protocol. 14.1 mCi of technetium 99m sestamibi was injected at rest. 0.4 mg of regadenoson was infused per usual protocol. At peak infusion 43.9 mCi of technetium 99m sestamibi was injected stress images were obtained stress and rest images were reconstructed and compared in the short axis vertical long and horizontal long axis. Gated images were also obtained. Perfusion SPECT analysis: Review of the stress images demonstrate normal uptake of tracer noted in all areas of the myocardium. The resting images similar demonstrated normal uptake of tracer noted in all areas of the myocardium. No areas of reversibility are noted to suggest ischemia and no previous infarct is noted. Gated SPECT analysis: The gated ejection fraction is preserved. Conclusion: Normal pharmacologic myocardial perfusion stress test. Preserved ejection fraction.
== END | disposition home or self-care (01) ==
LOC: CVS 07:17
PROVIDERS: PCP Internal Medicine; Referring Provider Internal Medicine Cardiovascular Disease; Visit Provider Internal Medicine Cardiovascular Disease
DX: I25.10 Atherosclerotic heart disease of native coronary artery without angina pectoris (principal); Z95.1 Presence of aortocoronary bypass graft
CPT/HCPCS: 78452; 93017; A9500; A4216; J2785

== ENCOUNTER → 2024-02-27 | Outpatient (CLI) | payer MEDICARE, BC, SELFPAY ==
[2024-02-27 16:15] LABS: Color, Urine Yellow (Yellow); Glucose, Dipstick 1000 mg/dl (Normal); Ketone-Dipstick Negative (Negative); Leukocyte Esterase-Dipstick 500 /ul (Negative); Nitrite-Dipstick Negative (Negative); Occult Blood-Urine 25 /ul (Negative); Protein-Dipstick 30 mg/dl (Negative); Urine Bilirubin Dipstick Negative (Negative); Urine Clarity Turbid (Clear); Urine Urobilinogen Normal (Normal); Urine pH 6.5 (5.0 - 8.0)
== END | disposition home or self-care (01) ==
LOC: LABSPEC 15:08
PROVIDERS: PCP Internal Medicine; Referring Provider Internal Medicine; Visit Provider Internal Medicine
DX: R30.0 Dysuria (principal)
CPT/HCPCS: 81002; 87077; 87086; 87088; 87186

== ENCOUNTER → 2024-08-16 | Outpatient (CLI) | payer BC, SELFPAY ==
--- NOTE | 2024-08-16 12:51 | ECHOD_ITS ---
Reason For Study: Murmur Procedure This was a 2D Doppler, Color Flow transthoracic echocardiogram. Exam performed in department. Left Ventricle Normal LV size. Left ventricular systolic function is normal. The left ventricular ejection fraction is 65 %. Stage 1 diastolic dysfunction. No regional wall motion abnormalities noted. Right Ventricle Normal RV size. Normal systolic function. Atria Normal left atrium. Normal right atrium. Mitral Valve Normal mitral valve. Tricuspid Valve Normal tricuspid valve. Mild tricuspid valve insufficiency. Pulmonary artery systolic pressure is 20 mmHg. Aortic Valve Trisinus/trileaflet aortic valve. Mild focal aortic valve calcification. Pulmonic Valve Normal pulmonic valve. Great Vessels Normal aortic root. Calcified aortic root. The pulmonary artery is normal size. Inferior vena cava collapse with respiration. Pericardium/Pleural No pericardial effusion. MMode/2D Measurements & Calculations LVIDd: 4.2 cm IVSd: 1.1 cm LVOT diam: 2.0 cm LVIDs: 2.8 cm LVPWd: 1.2 cm LVOT area: 3.1 cm2 RVDd: 2.9 cm FS: 35.1 % Ao root diam: 3.5 cm LAV(MOD-bp): 44.7 ml LA A4 area: 17.4 cm2 LAV(MOD-bp) Indexed: 24.2 ml/m2 LAV(MOD-sp2): 42.1 ml LAV(MOD-sp4): 47.1 ml LA dimension(2D): 4.5 cm TAPSE: 1.2 cm Time Measurements MV dec time: 0.35 sec Doppler Measurements & Calculations MV E max ba: 60.0 cm/sec Lat Peak E' Ba: 7.3 cm/sec Med Peak E' Ba: 6.0 cm/sec MV A max ba: 104.7 cm/sec E/E' lat: 8.3 E/E' med: 10.1 MV E/A: 0.57 MV V2 max: 131.6 cm/sec MV P1/2t max ba: 71.4 cm/sec Ao V2 max: 264.8 cm/sec MV max P.9 mmHg MV P1/2t: 112.6 msec Ao max P.1 mmHg MV V2 mean: 59.9 cm/sec Ao V2 mean: 172.3 cm/sec MV mean P.8 mmHg MV dec slope: 185.7 cm/sec2 Ao mean P.7 mmHg MV V2 VTI: 31.6 cm MVA(P1/2t): 2.0 cm2 Ao V2 VTI: 57.5 cm AV (velocity ratio): 0.41 MVA(VTI): 2.3 cm2 JORGE(I,D): 1.3 cm2 JORGE(V,D): 1.1 cm2 LV V1 max: 99.3 cm/sec SV(LVOT): 72.5 ml PA V2 max: 99.5 cm/sec LV V1 max P.9 mmHg LV V1 mean P.2 mmHg LV V1 mean: 70.4 cm/sec LV V1 VTI: 23.7 cm TR max ba: 208.1 cm/sec TR max P.3 mmHg ECHO/Echo Complete Interpretation Summary Normal LV size. Left ventricular systolic function is normal. The left ventricular ejection fraction is 65 %. Stage 1 diastolic dysfunction. Mild focal aortic valve calcification. Pulmonary artery systolic pressure is 20 mmHg. Ordering Physician: Salome Fisher Referring Physician: Salome Fisher Performed By: Suleman Barclay RCS
== END | disposition home or self-care (01) ==
PROVIDERS: PCP Internal Medicine; Referring Provider Physician Assistant Medical; Visit Provider Physician Assistant Medical
DX: R01.1 Cardiac murmur, unspecified (principal)
CPT/HCPCS: 93306

== ENCOUNTER → 2024-09-13 | Outpatient (CLI) | payer MEDICARE, BC, SELFPAY ==
--- NOTE | 2024-09-13 13:53 | BI_ITS ---
MAMMOGRAPHY - BILATERAL SCREENING 3-D TOMOSYNTHESIS REASON FOR EXAM: Female, 74 years old. Routine screening PERTINENT HISTORY: No significant family history. TECHNIQUE: 2-D mammograms and 3-D Tomosynthesis of the breast (s) were performed. CAD was performed. COMPARISON: 08/11/2022 FINDINGS: The breast composition is composed of scattered fibroglandular density. Stable scattered punctate calcifications are seen. No dense spiculated masses or suspicious microcalcifications are identified. No architectural distortion is identified. There is no skin thickening or retraction. There has been no significant change since the prior study. BI/SCRN MAMM (CAD)W/AQUILES BILAT IMPRESSION: No mammographic signs of malignancy. Routine yearly mammograms recommended. ASSESSMENT CATEGORY: BIRADS Category 2: Benign. A letter regarding these results will be sent to the patient by the facility within 30 days. FOLLOW UP RECOMMENDATION: Yearly follow up mammogram recommended. (A) Approximately 10% of breast cancers are not detected by mammography. A normal mammogram should not delay biopsy of a clinically suspicious abnormality. Electronically Signed: Khanh Caceres MD at 14:54 EST ,
== END | disposition home or self-care (01) ==
LOC: OPBI 13:51
PROVIDERS: PCP Internal Medicine; Referring Provider Internal Medicine; Visit Provider Internal Medicine
DX: Z12.31 Encounter for screening mammogram for malignant neoplasm of breast (principal)
CPT/HCPCS: 77063; 77067

== ENCOUNTER → 2025-05-26 | Outpatient (CLI) | payer MEDICARE, BC, SELFPAY ==
[2025-05-26 13:19] LABS: Hematocrit 39.2 % (37-47); Hemoglobin 12.7 g/dL (12.0-15.0); Immature Granulocytes Count 0.020 X10^3/uL (0.0-0.0); Mean Corp Hgb Conc 32.4 g/dL (32-36); Mean Corpuscular Volume 96.6 fL (81-99); Mean Platelet Vol. 9.7 fl (6.2-12.0); NRBC Flagged by Analyzer 0 % (0-5); Platelet Count 246 K/mm3 (150-450); RBC Distribution Width CV 13.5 % (11.6-14.6); RBC Distribution Width SD 47.7 fl (35.1-43.9); Red Blood Count 4.06 M/mm3 (4.2-5.4); White Blood Count 7.0 K/mm3 (4.4-11.0)
[2025-05-26 13:27] LABS: Color, Urine Yellow (Yellow); Glucose, Dipstick 1000 mg/dl (Normal); Ketone-Dipstick Negative (Negative); Leukocyte Esterase-Dipstick 500 /ul (Negative); Nitrite-Dipstick Negative (Negative); Occult Blood-Urine 250 /ul (Negative); Protein-Dipstick 30 mg/dl (Negative); Specific Gravity, Urine 1.015 (1.002-1.030); Urine Bilirubin Dipstick Negative (Negative)
[2025-05-26 13:58] LABS: Creatinine, Urine (random) 63.00 mg/dL (28.00-217.00); Microalbumin,Random Urine 130.0 mg/L (<20 mg/L)
[2025-05-26 14:04] LABS: AST(SGOT) 25 U/L (<=31); Alanine Aminotransfer ALT/SGPT 20 U/L (<=34); Albumin, Serum 4.3 g/dL (3.4-4.8); Alkaline Phosphatase 89 U/L (35-104); Anion Gap 11 (5-15); BUN 16 mg/dL (4-19); BUN/Creat Ratio 14.7 RATIO (10-20); Calcium,Total 9.6 mg/dL (7.6-11.0); Carbon Dioxide 23.2 mmol/L (21.0-32.0); Chloride 107 mmol/L (98-108); Globulin 2.4 g/dL (2.2-4.2); Glucose 122 mg/dL (70-99); Potassium 4.8 mmol/L (3.3-5.1)
== END | disposition home or self-care (01) ==
PROVIDERS: PCP Internal Medicine; Referring Provider Internal Medicine; Visit Provider Internal Medicine
DX: E11.22 Type 2 diabetes mellitus with diabetic chronic kidney disease (principal); N18.30 Chronic kidney disease, stage 3 unspecified; R30.0 Dysuria
CPT/HCPCS: 80053; 81002; 82043; 82570; 85025; 87086; 87088; 87186

== ENCOUNTER → 2025-06-11 | Outpatient (CLI) | payer BC, SELFPAY ==
--- NOTE | 2025-06-11 16:28 | MRI_ITS ---
PROCEDURE: SPINE LUMBAR (ROUTINE) 06/11/2025 REASON FOR EXAM: LUMBOSACRAL RADICULOPATHY AT S1 TECHNIQUE: Procedure Code: MRISPL Modality: MR Procedure: SPINE LUMBAR (ROUTINE) COMPARISON: None. FINDINGS: Vertebrae: There are no compression fractures. There are hemangiomas in the L1 and L2 vertebral bodies. Alignment: There is maintenance of the normal lumbar lordosis. Conus Medullaris: The conus medullaris terminates normally at the T12-L1 level. T12-L1: There is a broad-based central disc protrusion. There is an anterior disc protrusion complicated by marginal osteophytes. There is mild compression of the thecal sac. There is no central canal stenosis, lateral recess stenosis or foraminal narrowing. L1-2: There is a focal left central disc protrusion. There is an anterior disc protrusion complicated by marginal osteophytes. There is minimal compression of the thecal sac. There is no central canal stenosis. There is no lateral recess stenosis or foraminal narrowing. L2-3: There is circumferential disc bulging. There is an anterior disc protrusion complicated by marginal osteophytes. There is bilateral facet arthropathy with ligamentum flavum bulging. There is compression of the thecal sac without central canal stenosis. There is 2 mm of degenerative retrolisthesis of L2 on L3. There is mild lateral recess stenosis and foraminal narrowing, bilaterally. L3-4: There is a broad-based central disc protrusion. There is an anterior disc protrusion complicated by marginal osteophytes. There is bilateral facet arthropathy with ligamentum flavum bulging and there is a centrally oriented osteophyte on the right. There is central canal stenosis with the AP dimension of the spinal canal measuring 7 mm. There is moderate lateral recess stenosis and foraminal narrowing bilaterally. L4-5: There is a broad-based central disc protrusion. There is an anterior disc protrusion complicated by marginal osteophytes. There is bilateral facet arthropathy with ligamentum flavum bulging. There is a centrally oriented synovial cyst on the right. There is central canal stenosis with the AP dimension of the spinal canal measuring 6 mm. There is 4 mm of degenerative anterolisthesis of L4 on L5. There is moderate lateral recess stenosis and foraminal narrowing on the right and severe lateral recess stenosis and foraminal narrowing on the left. L5-S1: There is a broad-based central disc protrusion. There is bilateral facet arthropathy with ligamentum flavum bulging. There is central canal stenosis with the AP dimension of the spinal canal measuring 9 mm. There is no lateral recess stenosis or foraminal narrowing. Sacrum: The visualized portion is unremarkable. There is a benign cortical cyst in the interpolar region of the left kidney. MRI/Spine Lumbar (Routine) IMPRESSION: 1. There is diffuse degenerative disc disease of the lumbar spine. There is b ilateral facet arthropathy L2-3 through L5-S1, with central canal stenosis L3-4 through L5-S1. 2. There is lateral recess stenosis and foraminal narrowing at multiple levels as described, most severe at the L3-4 and L4-5 levels. 3. There is degenerative grade 1 retrolisthesis of L2 on L3 and anterolisthesi s of L4 on L5. Reading Location: [id number]
== END | disposition home or self-care (01) ==
PROVIDERS: PCP Internal Medicine; Referring Provider Internal Medicine; Visit Provider Internal Medicine
DX: M54.17 Radiculopathy, lumbosacral region (principal)
CPT/HCPCS: 72148

== ENCOUNTER → 2025-08-27 | Outpatient (CLI) | payer BC, SELFPAY ==
[2025-08-27 08:31] LABS: Mucous, Urine 0 SEEN /hpf (<or=2+); Red Blood Cells-Urine 0 SEEN /hpf (0-5)
[2025-08-27 10:17] LABS: Hematocrit 42.8 % (37-47); Hemoglobin 14.0 g/dL (12.0-15.0); Immature Granulocytes Count 0.040 X10^3/uL (0.0-0.0); Mean Corp Hgb Conc 32.7 g/dL (32-36); Mean Corpuscular Volume 94.9 fL (81-99); Mean Platelet Vol. 9.5 fl (6.2-12.0); NRBC Flagged by Analyzer 0 % (0-5); Platelet Count 303 K/mm3 (150-450); RBC Distribution Width CV 14.1 % (11.6-14.6); RBC Distribution Width SD 49.0 fl (35.1-43.9); Red Blood Count 4.51 M/mm3 (4.2-5.4); White Blood Count 10.8 K/mm3 (4.4-11.0)
[2025-08-27 10:19] LABS: Color, Urine Yellow (Yellow); Glucose, Dipstick 1000 mg/dl (Normal); Ketone-Dipstick Negative (Negative); Leukocyte Esterase-Dipstick Negative /ul (Negative); Nitrite-Dipstick Negative (Negative); Occult Blood-Urine Negative /ul (Negative); Protein-Dipstick 15 mg/dl (Negative); Specific Gravity, Urine 1.015 (1.002-1.030); Urine Bilirubin Dipstick Negative (Negative)
[2025-08-27 10:40] LABS: AST(SGOT) 39 U/L (<=31); Alanine Aminotransfer ALT/SGPT 68 U/L (<=34); Albumin, Serum 4.4 g/dL (3.4-4.8); Alkaline Phosphatase 82 U/L (35-104); Anion Gap 11 (5-15); BUN 25 mg/dL (4-19); BUN/Creat Ratio 20.6 RATIO (10-20); Calcium,Total 9.8 mg/dL (7.6-11.0); Carbon Dioxide 25.2 mmol/L (21.0-32.0); Chloride 107 mmol/L (98-108); Globulin 2.5 g/dL (2.2-4.2); Glucose 115 mg/dL (70-99); Potassium 4.5 mmol/L (3.3-5.1)
[2025-08-27 10:42] LABS: Creatinine, Urine (random) 111.00 mg/dL (28.00-217.00); Microalbumin,Random Urine 31.0 mg/L (<20 mg/L)
[2025-08-27 10:49] LABS: Squamous Epithelial Cells - UA 0-5 SEEN /hpf (5-10)
== END | disposition home or self-care (01) ==
LOC: CIMLAB 08:30
PROVIDERS: PCP Internal Medicine; Referring Provider Internal Medicine; Visit Provider Internal Medicine
DX: E11.22 Type 2 diabetes mellitus with diabetic chronic kidney disease (principal); N18.2 Chronic kidney disease, stage 2 (mild)
CPT/HCPCS: 36415; 80053; 81001; 82043; 82570; 83036; 85025